=== PATIENT | male | born 1950 | race Caucasian/White ===

== ENCOUNTER 2024-08-27 12:33 | Emergency (ER) | payer MEDICARE, SELFPAY ==
[2024-08-27 12:35] VITALS: BP 144/68
[2024-08-27 13:08] LABS: COVID-19 Antigen Negative (Negative)
[2024-08-27 13:11] VITALS: BMI 25.7
[2024-08-27 13:13] VITALS: BP 129/67
--- NOTE | 2024-08-27 14:03 | PHANOTE ---
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 I can't find any record of an rx or in [facility]. Says that he took two yesterday (08/26/24) and one today.
--- NOTE | 2024-08-27 15:02 | ED.GENMED ---
History of Present Illness
General
Chief Complaint: Weakness
Time Seen by Provider: 08/27/24 13:42
History of Present Illness
History of Present Illness:
Patient is a 73-year-old man presenting to the emergency department for cough. Patient states for the past week he has had bodyaches diarrhea congestion runny nose. No chest pain. No shortness of breath. No vomiting. He did have some diarrhea
that was darker but he attributes that to Pepto-Bismol. He states that he had a Z-Darrell lying around to be did start that. He does feel slightly better however patient's advised him to come to the emergency department for further evaluation.
Phy Exam
Physical Exam
Physical Exam:
GENERAL: in no acute distress
HEENT: normocephalic, extraocular movements intact, moist oral mucosa, congested
NECK: normal inspection
RESPIRATORY: no respiratory distress, clear to auscultation bilaterally
CARDIOVASCULAR: regular rate and rhythm
ABDOMEN/: soft, non-distended, non-tender to palpation, no rebound or guarding
EXTREMITIES: non-tender, no edema/swelling
NEUROLOGIC: awake and alert, moves all extremities
SKIN: warm
Course
Orders/Labs/Results
Orders:
Orders
08/27/24 12:45
COVID-19 Antigen Urgent
Source: Nasal Swab
Influenza A+B Rapid Molecular Urgent
MARIJA Source: Nasal Swab
Specimen Description:
Vital Signs
Initial and Last Documented VS:
Initial Vital Signs
Temp Pulse Resp BP Pulse Ox
97.7 F 67 16 144/68 93
08/27/24 12:35 08/27/24 12:35 08/27/24 12:35 08/27/24 12:35 08/27/24 12:35
Last Documented Vital Signs
Temp Pulse Resp BP Pulse Ox
97.7 F 67 29 129/67 95
08/27/24 12:35 08/27/24 12:35 08/27/24 13:15 08/27/24 13:13 08/27/24 13:15
MDM/Problems Addressed
Differential Diagnosis Includes:
Patient is a 73-year-old man presenting to the emergency department 1 week of cough congestion rhinorrhea body aches diarrhea that have been getting better. Vitals here notable for normal pulse ox and normal heart rate. On examination he does
appear well-hydrated with no focal findings on lung exam. Likely viral illness. Swabs were obtained prior to my evaluation which did show positive for flu A. Ambulatory pulse ox was normal. We did discuss about obtaining blood work given
patient's symptoms and the diarrhea however patient states that symptoms have been getting better and would like to hold off at this time. He does not look dehydrated on exam so I am in agreement with patient. Will discharge patient at this time.
Strict return precautions given.
*Critical Care Note
Total Time (30-74mins, 75-104mins- exclusive of procedures): Not Applicable
ED Attending Note
-
Portions of this chart may have been created with voice recognition software.� Occasional wrong word or��sound alike� substitutions may have occurred due to the inherent limitations of voice recognition software.
Discharge Plan
Departure
Patient Disposition: Home (Routine Discharge)
Date of Disposition: 08/27/24
Time of Disposition: 15:01
Patient with high blood pressure during this ER visit?: No
Discharge Problem:
Influenza A
Instructions: Flu in adults - ED discharge instructions
Prescriptions:
No Action
levothyroxine 137 mcg Tablet
137 mcg PO DAILY
prednisone 5 mg Tablet
5 mg PO DAILY
prednisone 5 mg Tablet
2.5 mg PO QPM
dextromethorphan-guaifenesin [Robitussin-DM] 10-100 mg/5 mL Syrup
10 ml PO DAILYPRN PRN (Reason: cough)
amlodipine 5 mg Tablet
5 mg PO DAILY
omeprazole 20 mg Capsule,Delayed Release(Dr/Ec)
20 mg PO DAILY
irbesartan 75 mg Tablet
75 mg PO DAILY
pseudoephedrine HCl [Sudafed] 30 mg Tablet
30 mg PO DAILYPRN PRN (Reason: congestion)
Pepto-Bismol 262 mg Tablet
524 mg PO DAILYPRN PRN (Reason: stomachache)
hydroxychloroquine 200 mg Tablet
200 mg PO BID
calcitriol 0.25 mcg Capsule
0.25 mcg PO MOWEFR
nebivolol 10 mg Tablet
10 mg PO DAILY
Referrals:
Chandler Washburn MD [Family Provider] -
Activity Restrictions/Additional Instructions:
You were seen in the Emergency Department today for the flu. Please stay well-hydrated. You may use a humidifier, steam showers and honey for your symptoms. You may also use Tylenol Motrin
We would like for you to follow up with your primary care physician for further evaluation. If you experience fever, worsening of your symptoms, or develop any other new or concerning symptoms, please return to the Emergency Department immediately.
Please see the attached sheet for additional information.
Interventions
Interventions:
*Risk Screen - Suicide Last Done: 08/27/24 13:11
*General Assessment Last Done: 08/27/24 13:11
*Neglect/Abuse Screening Last Done: 08/27/24 13:11
*ED- Fall Risk Assessment Last Done: 08/27/24 13:11
*ED COVID-19 Vaccine History Last Done: 08/27/24 13:11
ED- Cardiac Assessment Last Done: 08/27/24 13:11
ED- Neurological Assessment Last Done: 08/27/24 13:11
ED- Pulmonary Assessment Last Done: 08/27/24 13:11
Discharge Date and Time
Print Language: INDIAN
[2024-08-27 15:10] VITALS: BP 141/69
== END 2024-08-27 15:15 | disposition home or self-care (01) ==
LOC: EMR 12:33
PROVIDERS: Emergency Medicine; EMERGENCY PHYSICIAN Student in an Organized Health Care Education/Training Program; FAMILY PHYSICIAN Internal Medicine
DX: J10.1 Influenza due to other identified influenza virus with other respiratory manifestations (principal)
CPT/HCPCS: 99282; 87502; 87811